=== PATIENT | female | born 1990 | race Caucasian/White ===

== ENCOUNTER 2022-05-16 11:14 | Emergency (ER) | payer OTHER ==
[2022-05-16 11:22] VITALS: BP 138/89; PULSE 102; RESP 20; TEMP 98.5
[2022-05-16] MEDS ORDERED: cefTRIAXone 250 MG VIAL IM STA (11:53)
[2022-05-16] MEDS ORDERED: AZITHROMYCIN 500 MG TAB PO STA (12:09)
[2022-05-16] MEDS ORDERED: LIDOCAINE 1% INJ 10MG/ML (30 ML VIAL-PF) SQ ONE (12:34)
--- NOTE | 2022-05-16 14:02 | ED ---
Recheck HPI - General Chief Complaint: Recheck/Abnormal Lab/Rx Stated Complaint: [facility] -fluid exposure Time Seen by Provider: 05/16/22 11:46 Source: patient, RN notes reviewed Mode of arrival: ambulatory Limitations: no limitations - History of Present Illness Initial Comments: This is a 32-year-old female who presents to the emergency department for [facility] b odily fluid exposure. 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 States that she did not have a significant amount of secretions go into her eye and she washed it immediately afterwards. The patient where the fluid originated from has no concern for STDs and has never been diagnosed with HIV or hepatitis. Denies any fevers, chills, sore throat, cough, dyspnea, chest pain, palpitations, abdominal pain, nausea, vomiting, diarrhea, back pain, or headaches. MD Complaint: other ([facility] fluid exposure) - Related Data Home Medications Medication Instructions Recorded Confirmed Cholecalciferol [Vitamin D3 (25 50 mcg PO DAILY 05/16/22 05/16/22 Mcg = 1000 Iu)] Ogj-Svci-Ftkpt Acid 1 cap PO DAILY 05/16/22 05/16/22 [-U Capsule (formulary)] Previous Rx's Medication Instructions Recorded metroNIDAZOLE [Flagyl] 500 mg PO BID 7 Days #14 tab 05/16/22 Allergies Allergy/AdvReac Type Severity Reaction Status Date / Time No Known Allergies Allergy Verified 05/16/22 12:31 Review of Systems ROS Statement: Those systems with pertinent positive or pertinent negative responses have been documented in the HPI. ROS Other: All systems not noted in ROS Statement are negative. Past Medical History Past Medical History: No Reported History History of Any Multi-Drug Resistant Organisms: None Reported Additional Past Surgical History / Comment(s): Bilateral knee athroscopy. Past Psychological History: No Psychological Hx Reported Smoking Status: Never smoker Past Alcohol Use History: None Reported Past Drug Use History: None Reported General Exam Limitations: no limitations General appearance: alert, in no apparent distress Head exam: Present: atraumatic, normocephalic, normal inspection Eye exam: Present: normal appearance, PERRL, EOMI. Absent: scleral icterus, conjunctival injection, periorbital swelling Respiratory exam: Present: normal lung sounds bilaterally. Absent: respiratory distress, wheezes, rales, rhonchi, stridor Cardiovascular Exam: Present: regular rate, normal rhythm, normal heart sounds. Absent: systolic murmur, diastolic murmur, rubs, gallop, clicks Neurological exam: Present: alert, oriented X3, CN II-XII intact Psychiatric exam: Present: normal affect, normal mood Skin exam: Present: warm, dry, intact, normal color. Absent: rash Course Vital Signs 05/16/22 11:16 Temperature 98.5 F Pulse Rate 102 H Respiratory 20 Rate Blood Pressure 138/89 O2 Sat by Pulse 97 Oximetry Medical Decision Making - Medical Decision Making This is a 32-year-old female who presents to the emergency department per [facility] requirements for bodily fluid exposure. Was pt. sent in by a medical professional or institution? @ -[facility] Did you speak to anyone other than the patient for history? @ -No Did you review nursing and triage notes? @ -Agree, accurate with regards to the patient's symptoms. Were old charts reviewed? @ -No Differential Diagnosis? @ -Not applicable What testing was considered but not performed? (CT, X-rays, U/S, labs)? Why? @ -None What meds were considered but not given? Why? @ -Ceftriaxone and Azithromycin, however the patient declined at this time. Did you discuss the management of the patient with other professionals? @ -No Did you reconcile home meds? @ -No Was smoking cessation discussed for >3mins.? @ -No Was critical care preformed (if so, how long)? @ -No Were there social determinants of health that impacted care today? How? (Homelessness, low income, unemployed, alcoholism, drug addiction, transportation, low edu. Level, literacy, decrease access to med. care, fci, rehab)? @ -No Was there de-escalation of care discussed even if they declined? (Discuss DNR or withdrawal of care, Hospice)? @ -No What co-morbidities impacted this encounter? (DM, HTN, Smoking, COPD, CAD, Cancer, CVA, Hep., AIDS, mental health diagnosis, sleep apnea, morbid obesity)? @ -None Was patient admitted / discharged? @ -Discharged. The required [facility] paperwork was filled out and her blood was drawn for the required testing. Patient declined ceftriaxone and azithromycin at this time, states that she will wait for her and the patient's results to come back before deciding if she will take these medications. I did send in a prescription for Flagyl in the event she decides to take it. Advised that she can return here or follow up with her primary care provider if she chooses to take the ceftriaxone and azithromycin. She will receive the results of the patient's testing, as she is the patient's primary care provider and it will be sent to her. Drug Therapy requiring intensive monitoring for toxicity (Heparin, Nitro, Insulin, Cardizem)? @ -None Were any procedures done? @ -None Diagnosis/symptom? @ -Exposure to bodily fluids Acute, or Chronic, or Acute on Chronic? @ -Acute Uncomplicated (without systemic symptoms) or Complicated (systemic symptoms)? @ -Uncomplicated Side effects of treatment? @ -None Exacerbation, Progression, or Severe Exacerbation] @ -Not applicable Poses a threat to life or bodily function? @ -No Return precautions reviewed in depth, the patient is instructed to return to the emergency department with any new, worsening, or concerning symptoms. Patient verbalized understanding. This case was discussed in detail with the attending ED physician. Presentation, findings, and treatment plan discussed in detail as well. Disposition Clinical Impression: Exposure to body fluid Disposition: HOME SELF-CARE Condition: Good Instructions (If sedation given, give patient instructions): Postexposure Prophylaxis (ED) Additional Instructions: Return to the emergency department with any new, worsening, or concerning symptoms. You are welcome to return here or follow-up with your [facility] if you decide to follow through with the postexposure prophylaxis. The Flagyl was sent to your pharmacy in the event you need it. Prescriptions: metroNIDAZOLE [Flagyl] 500 mg PO BID 7 Days #14 tab Is patient prescribed a controlled substance at d/c from ED?: No Referrals: None,Stated [Primary Care Provider] - 1-2 days
[2022-05-16 19:05] LABS: Hepatitis C IgG Antibody Nonreactive (Nonreactive)
[2022-05-16 20:31] LABS: Hepatitis B Surface AB- Quant 55.8 mIU/mL; Hepatitis B Surface Antibody Reactive (Nonreactive)
[2022-05-16 20:42] LABS: HIV 2 AB Non-Reactive (Non-Reactive); HIV AB P24 Non-Reactive (Non-Reactive); HIV P24 AG Non-Reactive (Non-Reactive)
== END 2022-05-16 14:14 | disposition home or self-care (01) ==
LOC: EC 11:14
DX: Z77.21 Contact with and (suspected) exposure to potentially hazardous body fluids (principal)
CPT/HCPCS: 36415; 86706; 86803; 87390; 99283